=== PATIENT | male | born 1965 | race African-American/Black ===

== ENCOUNTER 2016-10-19 18:21 | Emergency (ER) | payer OTHER ==
[2016-10-19 18:30] VITALS: BMI 23.6
--- NOTE | 2016-10-19 18:30 | PDOC ---
[id number] Source: Patient Exam Limitations: No Limitations - History of Present Illness Initial Comments: 51 yo M no PMH presents with R ankle pain and deformity after landing incorrectly on his foot while doing a martial arts move. He denies any numbness , weakness. No other injuries. There is an obvious deformity to the ankle. Patient c/o moderate localized pain. <Eunice Stewart - Last Filed: 10/26/16 08:32> - General Chief Complaint: Pain, Acute Stated Complaint: RIGHT ANKLE PAIN Time Seen by Provider: 10/19/16 18:30 Past History <Gilberto Ramirez - Last Filed: 10/19/16 18:41> - Past Medical History Other medical history: HERNIATED DISC - Psycho/Social/Smoking Cessation Hx Anxiety: No Suicidal Ideation: No Smoking History: Never smoked Hx Alcohol Use: Yes Drug/Substance Use Hx: No Substance Use Type: Alcohol <Eunice Stewart - Last Filed: 10/26/16 08:32> - Past Medical History Allergies/Adverse Reactions: Allergies Allergy/AdvReac Type Severity Reaction Status Date / Time No Known Allergies Allergy Verified 10/19/16 18:22 Home Medications: Ambulatory Orders Oxycodone HCl/Acetaminophen [Percocet 5-325 mg Tablet] 1 - 2 tab PO Q6H #50 tablet MDD 8 10/25/16 Review of Systems - Review of Systems Able to Perform ROS?: Yes <Gilberto Ramirez - Last Filed: 10/19/16 18:41> - Review of Systems Comments:: GENERAL/CONSTITUTIONAL: No fever or chills. No weakness. HEAD, EYES, EARS, NOSE AND THROAT: No change in vision. No ear pain or discharge. No sore throat. CARDIOVASCULAR: No chest pain or shortness of breath. RESPIRATORY: No cough, wheezing, or hemoptysis. GASTROINTESTINAL: No nausea, vomiting, diarrhea or constipation. GENITOURINARY: No dysuria, frequency, or change in urination. MUSCULOSKELETAL: +R ankle pain, swelling, and deformity. No neck or back pain. SKIN: No rash NEUROLOGIC: No headache, vertigo, loss of consciousness, or change in strength/ sensation. ENDOCRINE: No increased thirst. No abnormal weight change. HEMATOLOGIC/LYMPHATIC: No anemia, easy bleeding, or history of blood clots. ALLERGIC/IMMUNOLOGIC: No hives or skin allergy. <Eunice Stewart - Last Filed: 10/26/16 08:32> *Physical Exam - Vital Signs Last Vital Signs Temp Pulse Resp BP Pulse Ox 0/0 10/19/16 18:22 <KaityGilberto fabian - Last Filed: 10/19/16 18:41> - Vital Signs Last Vital Signs Temp Pulse Resp BP Pulse Ox 0/0 10/19/16 18:22 - Physical Exam Comments: GENERAL: Awake, alert, and fully oriented, in no acute distress HEAD: No signs of trauma EYES: PERRLA, EOMI, sclera anicteric, conjunctiva clear ENT: Auricles normal inspection, hearing grossly normal, nares patent, oropharynx clear without exudates. Moist mucosa NECK: Normal ROM, supple, no lymphadenopathy, JVD, or masses LUNGS: Breath sounds equal, clear to auscultation bilaterally. No wheezes, and no crackles HEART: Regular rate and rhythm, normal S1 and S2, no murmurs, rubs or gallops ABDOMEN: Soft, nontender, normoactive bowel sounds. No guarding, no rebound. No masses EXTREMITIES: +Obvious deformity to the R ankle, foot rotated laterally. Distal N /V intact. Cap refill <2s. Remainder of extremities with normal range of motion , no edema. No clubbing or cyanosis. No cords, erythema, or tenderness NEUROLOGICAL: Cranial nerves II through XII grossly intact. Normal speech, normal gait SKIN: Warm, Dry, normal turgor, no rashes or lesions noted. <Eunice Stewart - Last Filed: 10/26/16 08:32> ED Treatment Course - LABORATORY CBC & Chemistry Diagram: 10/19/16 19:02 10/19/16 19:02 - RADIOLOGY Radiology Studies Ordered: Category Date Time Status ANKLE-RIGHT [RAD] Stat Radiology 10/19/16 18:28 Ordered <Eunice Stewart - Last Filed: 10/26/16 08:32> Medical Decision Making - Medical Decision Making 10/19/16 19:[address] Melvin. Dr. Vaughn has reduced and placed in splint, awaiting f /u XR. I have written rx for pain medication. Will f/u as outpatient with ortho. <Eunice Stewart - Last Filed: 10/26/16 08:32> *DC/Admit/Observation/Transfer - Attestations Scribe Attestion: 10/19/16 18:32 Documentation prepared by Gilberto Ramirez, acting as medical office technologist for Eunice Stewart MD. <Gilberto Ramirez - Last Filed: 10/19/16 18:41> - Discharge Dispostion Admit: No <Eunice Stewart - Last Filed: 10/26/16 08:32> Diagnosis at time of Disposition: Closed fracture dislocation of ankle - Discharge Dispostion Disposition: HOME Condition at time of disposition: Stable - Referrals Referrals: John Vaughn MD [Staff Physician] - - Patient Instructions Printed Discharge Instructions: DI for Ankle Fracture, DI for Ankle Dislocation Additional Instructions: Follow-up with the orthopedist as per his instructions. For pain you can take ibuprofen 600 mg 3 times a day with food don't take on an empty stomach If he needs something stronger for pain take Percocet one or 2 tablets as often as every 4-6 hours. Use your crutches for ambulation no weight bearing. Return to the emergency department immediately with ANY new, persistent or worsening symptoms. Continue any medications as previously prescribed by your physician. You should follow up with your primary doctor as soon as possible regarding today's emergency department visit. . Please make sure your doctor reviews the results of your emergency evaluation. Thank you for coming to the Emergency Department today for your care. It was a pleasure to see you today. Please note that your evaluation is INCOMPLETE until you follow-up with your doctor.
[2016-10-19] MEDS ORDERED: morphine CARPU-JECT 4 MG/1 ML DISP.SYRIN IVPUSH ONE (18:55)
[2016-10-19] MEDS ORDERED: SODIUM CHLORIDE 1,000 ML IV STA (18:55)
[2016-10-19] MEDS ORDERED: morphine CARPU-JECT 10 MG/1 ML DISP.SYRIN ONE (19:04)
[2016-10-19 19:07] VITALS: BP 147/98
[2016-10-19 19:08] VITALS: PULSE 94; TEMP 98.3
[2016-10-19 19:10] LABS: MCH 27.1 pg (25.7-33.7); MCHC 31.8 g/dl (32.0-35.9); MEAN CELL VOLUME 85.1 fl (80-96); MEAN PLT VOLUME 7.9 fl (7.5-11.1); PLATELET COUNT 349 K/MM3 (134-434); RDW 13.1 % (11.9-15.9); WHITE BLOOD COUNT 8.3 K/mm3 (4.0-10.0)
[2016-10-19 19:26] LABS: ALBUMIN 4.2 g/dl (3.5-5.0); ALK PHOS 59 U/L (32-92); ANION GAP 9 (8-16); BILIRUBIN,TOTAL 0.2 mg/dl (0.2-1.0); CALCIUM 9.1 mg/dl (8.4-10.2); CO2 25 mmol/L (22-28); GLUCOSE,RANDOM 128 mg/dl (74-106); SGOT/AST 26 U/L (10-42); SGPT/ALT 31 U/L (10-40); TOT PROT 7.2 g/dl (6.4-8.3)
[2016-10-19 19:30] LABS: INR 1.03 (0.82-1.09); PROTHROMBIN TIME (PATIENT) 11.5 SEC (10.2-13.0)
--- NOTE | 2016-10-19 20:20 | PDOC ---
*Physical Exam - Vital Signs Last Vital Signs Temp Pulse Resp BP Pulse Ox 98.3 F 94 H 18 147/98 100 10/19/16 18:22 10/19/16 18:22 10/19/16 18:22 10/19/16 19:07 10/19/16 18:22 ED Treatment Course - LABORATORY CBC & Chemistry Diagram: 10/19/16 19:02 10/19/16 19:02 - ADDITIONAL ORDERS Additional order review: Laboratory Results 10/19/16 10/19/16 19:02 19:02 INR 1.03 Sodium 138 Potassium 3.8 Chloride 104 Carbon Dioxide 25 Anion Gap 9 BUN 12 Creatinine 1.0 Creat Clearance w eGFR > 60 Random Glucose 128 H Calcium 9.1 Total Bilirubin 0.2 AST 26 ALT 31 Alkaline Phosphatase 59 Total Protein 7.2 Albumin 4.2 10/19/16 19:02 RBC 5.13 MCV 85.1 MCHC 31.8 L RDW 13.1 MPV 7.9 Neutrophils % Y Lymphocytes % Y - Medications Given in the ED: ED Medications Discontinued Medications Generic Name Dose Route Start Last Admin Trade Name Freq PRN Reason Stop Dose Admin Sodium Chloride 1,000 mls @ 1,000 mls/hr 10/19/16 18:55 10/19/16 19:07 Normal Saline - IV 10/19/16 19:54 1,000 mls/hr ASDIR STA Administration Morphine Sulfate 4 mg 10/19/16 18:55 10/19/16 19:07 Morphine Injection - IVPUSH 10/19/16 18:56 4 mg ONCE ONE Administration Progress Note - Progress Note Progress Note: Postreduction x-ray alignment is marked improved with some displacement of the fibula as well as disruption of the mortise. Assessment and plan: Care of this patient was transferred to [facility] by Dr. Stewart. Patient was seen and evaluated and casted by orthopedist Patient has follow-up by the orthopedist. I reviewed postreduction x-ray and discharge patient. *DC/Admit/Observation/Transfer Diagnosis at time of Disposition: Closed fracture dislocation of ankle - Discharge Dispostion Disposition: HOME Condition at time of disposition: Stable - Prescriptions Prescriptions: Ibuprofen [Motrin -] 600 mg PO TID PRN #21 tablet PRN Reason: Pain Oxycodone HCl/Acetaminophen [Percocet 5-325 mg Tablet] 1 tab PO Q6H PRN #12 tablet MDD 4 tabs PRN Reason: Severe Pain - Referrals Referrals: John Vaughn MD [Staff Physician] - - Patient Instructions Printed Discharge Instructions: DI for Ankle Fracture, DI for Ankle Dislocation Additional Instructions: Follow-up with the orthopedist as per his instructions. For pain you can take ibuprofen 600 mg 3 times a day with food don't take on an empty stomach If he needs something stronger for pain take Percocet one or 2 tablets as often as every 4-6 hours. Use your crutches for ambulation no weight bearing. Return to the emergency department immediately with ANY new, persistent or worsening symptoms. Continue any medications as previously prescribed by your physician. You should follow up with your primary doctor as soon as possible regarding today's emergency department visit. . Please make sure your doctor reviews the results of your emergency evaluation. Thank you for coming to the Emergency Department today for your care. It was a pleasure to see you today. Please note that your evaluation is INCOMPLETE until you follow-up with your doctor. - Post Discharge Activity
--- NOTE | 2016-10-19 23:32 | CONS ---
DATE OF CONSULTATION: 10/19/2016 ORTHOPEDIC EMERGENCY ROOM CONSULTATION HISTORY OF PRESENT ILLNESS: Patient is a 51-year-old male status post fall with trauma today, presented to the [facility] emergency room with an obvious angulated deformity of the right ankle. Before I evaluated the patient, patient was given an x-ray which showed a bimalleolar fracture dislocation of the right ankle. Patient denies any cigarette use, diabetes, or any other significant past medical history. PHYSICAL EXAMINATION: Patient has an obvious external rotation deformity with distal tibia tensing anteriorly. Pulses were intact for capillary refill. is soft, nontender. X-rays showed a bimalleolar fracture dislocation of the ankle. IMPRESSION: Right bimalleolar fracture dislocation of the ankle. A closed reduction was performed which was basically stable. Patient was placed in a U splint post reduction, with brisk capillary refill and 2+ pulses. Post reduction x-rays shows the fracture is reduced, but still some displacement of the mortise. Patient was sent home with ice and elevation and U splint and told to follow up in the office and we booked the patient for open reduction internal fixation next week once the swelling goes down. MARCELLA MCMAHON M.D. [id number]
== END 2016-10-19 20:25 | disposition home or self-care (01) ==
LOC: FER 18:21
PROC: 0SSFXZZ Reposition Right Ankle Joint, External Approach (ICD-10-PCS; principal; 2016-10-19)
PROC: 3E033NZ Introduction of Analgesics, Hypnotics, Sedatives into Peripheral Vein, Percutaneous Approach (ICD-10-PCS; 2016-10-19)
PROC: 3E0337Z Introduction of Electrolytic and Water Balance Substance into Peripheral Vein, Percutaneous Approach (ICD-10-PCS; 2016-10-19)
DX: S92.101A Unspecified fracture of right talus, initial encounter for closed fracture (principal); W18.39XA Other fall on same level, initial encounter; Y93.75 Activity, martial arts; Y92.9 Unspecified place or not applicable
CPT/HCPCS: 36415; 73610-TC-RT; 80053; 85025; 85610; 86850; 86900; 86901; 99284-25

== ENCOUNTER 2016-10-25 09:24 | Day surgery (SDC) | payer OTHER ==
[2016-10-21 11:32] VITALS: BMI 38.4
[2016-10-25] MEDS ORDERED: MIDAZOLAM HCL 2 MG/2 ML SINGLE DOSE VIAL ONE (11:40)
[2016-10-25] MEDS ORDERED: DEXAMETHASONE SOD PHOSPHATE/PF 10 MG/ML SDV ONE (11:40)
--- NOTE | 2016-10-25 12:14 | HP ---
Satellite [facility] - Chief Complaint Chief Complaint: right ankle fx - Past Medical History Allergies/Adverse Reactions: Allergies Allergy/AdvReac Type Severity Reaction Status Date / Time No Known Allergies Allergy Verified 10/19/16 18:22 - Current Medications Current Medications: Home Medications Medication Instructions Recorded Oxycodone HCl/Acetaminophen 1 - 2 tab PO Q6H #50 tablet MDD 8 10/25/16 [Percocet 5-325 mg Tablet] Satellite Physical Exam - Physical Examination Vital Signs: Vital Signs Period Temp Pulse Resp BP Sys/Stuart Pulse Ox Last 24 Hr 98.2 F 98 16 150/92 98 General Appearance: Well Nourished, Well Developed, Alert & Oriented x3 ENT: Clear Lung: Normal air movement Heart: Regular rate & rhythm Extremities: Other (right ankle- splint intact, + swelling, + ttp, decr rom, nvi ) Neurological: Intact, Alert, Oriented Satellite Impression/Plan - Impression/Plan Impression: right ankle fx-dislocation Operative Procedure: right ankle orif Date to be Performed: 10/25/16
[2016-10-25] MEDS ORDERED: ceFAZolin SODIUM 1 GM VIAL ONE (12:50)
[2016-10-25] MEDS ORDERED: PROPOFOL 20 ML ONE (13:46)
--- NOTE | 2016-10-25 14:21 | OP ---
Operative Note - Note: Operative Date: 10/25/16 (luther) Pre-Operative Diagnosis: right ankle fx Operation: right ankle orif, syndesmosis repair Post-Operative Diagnosis: Same as Pre-op Surgeon: John Vaughn Warehouse Trainer: Gilberto Mireles Anesthesiologist/SUPERVISOR TELEPHONE INFORMATION: Lizzie Olivera Anesthesia: Local Estimated Blood Loss (mls): 25 (tourniquet) Operative Report Dictated: Yes
[2016-10-25] MEDS ORDERED: LACTATED RINGERS SOLUTION 1,000 ML IV SCH (14:45)
[2016-10-25 15:19] VITALS: PULSE 85
[2016-10-25] MEDS ORDERED: CEFAZOLIN 2 GM/D5W 50 ML IVPB ONE (15:30)
[2016-10-25] MEDS ORDERED: ONDANSETRON 4 MG/2 ML VIAL IVPUSH PRN (15:30)
[2016-10-25] MEDS ORDERED: oxyCODONE HCL 5 MG TABLET PO PRN ×2 (15:30→15:31)
[2016-10-25 16:12] VITALS: BP 139/82; TEMP 98.3
--- NOTE | 2016-10-25 20:53 | OP ---
DATE OF OPERATION: 10/25/2016 PREOPERATIVE DIAGNOSIS: Right bimalleolar fracture dislocation and syndesmosis rupture. POSTOPERATIVE DIAGNOSIS: Right bimalleolar fracture dislocation and syndesmosis rupture. OPERATIVE PROCEDURE: Open reduction and internal fixation of the right bimalleolar fracture and syndesmosis repair. SURGICAL ATTENDING: John Vaughn MD INDUSTRIAL SERVICER: SANDIP Green ANESTHESIA: Regional and general. CLOSURE: A lateral plate and screws from [employer], 2 cannulated screws medially and 2 syndesmosis TightRopes for syndesmosis, 0 Vicryl for fascia, 2-0 for subcutaneous, and hammad for skin. ESTIMATED BLOOD LOSS: Negligible. TOURNIQUET TIME: Approximately 1 hour 10 minutes. DESCRIPTION OF OPERATIVE PROCEDURE: Patient taken to the operating room on October 25, 2016. Regional and general anesthesia was administered by the anesthesiologist. IV Kefzol administered prophylactic prior to case. A well-padded pneumatic tourniquet was placed on the right proximal calf away from the fibular head. The right lower extremity was prepped and draped in the usual sterile fashion. The leg was exsanguinated with an Esmarch bandage. Tourniquet was inflated to 250 mmHg. An 8 cm longitudinal incision centered over the fibular fracture, which was a high fibular fracture, was incised. Hemostasis achieved with Bovie cautery. Sharp dissection was carried through the fascia and blunt dissection was carried down to the fracture. Periosteal elevated was used to clear the fracture and expose the ends. Curette and irrigation removed the hematoma from around the fracture. An anatomical reduction was obtained using pointed reduction clamp. A flat DCP plate was applied to the posterolateral aspect of the fibula and clamped into place. Multiple proximal and distal holes were drilled, depth gauged, and screwed with the appropriate type of screws. First they were nonlocking to cinch the plate to the bone and then the others were locking. The middle screw lagged the 2 fractures, 1 to each other, through the plate itself as well, achieving excellent compression and anatomical reduction. X-ray revealed excellent position and reduction of the fracture and the hardware was in excellent position. Next our attention was directed medially. A 5 cm longitudinal incision over the medial malleolus was incised. Hemostasis achieved with Bovie cautery. Sharp dissection was carried down to the level of the fracture. The periosteum and clot forming around the fracture was debrided. A drill hole was made proximal to the fracture to allow placement of a pointed reduction clamp. Pointed reduction clamp was used to gain an anatomic reduction of the medial malleolus. Two threaded pins were drilled from the tip of the malleolus past the fracture into the distal tibia, proper placement confirmed in the AP, lateral and mortise views. They were then depth gauged and screwed with the appropriate size partially-threaded cannulated 4-0 screws, achieving excellent compression of the fracture. Fluoroscopy revealed anatomical reduction of the fibula and the medial malleolus. External rotation, however, revealed gapping of the syndesmosis. With the ankle held in neutral and internal rotation, 2 guidewires from the [employer] syndesmosis TightRope set were drilled through all 4 cortices parallel to the ankle joint. They were then over-reamed with a drill and then knotless syndesmosis TightRopes were deployed, cinching them down on the lateral fibula, achieving excellent fixation of the syndesmosis. The sutures were cut short. Fluoroscopy revealed excellent position of the syndesmosis TightRope. External rotation revealed good stability of the syndesmosis post repair. Both incisions were irrigated with copious amounts of irrigation. The fascia was closed with 0 Vicryl, 2-0 for subcutaneous, and hammad for the skin. A sterile pressure dressing followed by a U splint was applied. Tourniquet was deflated. Total tourniquet time was approximately 70 minutes. No complications. Radha PAREKH/[id number]
== END 2016-10-25 16:00 | disposition home or self-care (01) ==
LOC: FASU 09:24
PROVIDERS: ATTEND Orthopaedic Surgery
PROC: 0SSF0ZZ Reposition Right Ankle Joint, Open Approach (ICD-10-PCS; 2016-10-25)
PROC: 0QSG04Z Reposition Right Tibia with Internal Fixation Device, Open Approach (ICD-10-PCS; principal; 2016-10-25 13:03)
DX: S82.841A Displaced bimalleolar fracture of right lower leg, initial encounter for closed fracture (principal); S93.431A Sprain of tibiofibular ligament of right ankle, initial encounter; X58.XXXA Exposure to other specified factors, initial encounter; Y93.9 Activity, unspecified; Y92.9 Unspecified place or not applicable
CPT/HCPCS: 73610-TC-RT; 76001-TC; 94760

== ENCOUNTER 2016-10-30 23:39 | Emergency (ER) | payer OTHER ==
[2016-10-30 23:45] VITALS: BP 155/103; PULSE 104; TEMP 99; BMI 38.4
--- NOTE | 2016-10-31 00:07 | PDOC ---
History of Present Illness - General Stated Complaint: SWELLING TO RIGHT FOOT POST SURGERY History Source: Patient - History of Present Illness Initial Comments: 10/31/16 03:31 s/p orif r ankle days ago with immobilization of R ankle presents with tingling and increased swelling to r foot Timing/Duration: 1 week Severity: moderate Modifying Factors: improves with: immobilization Associated Symptoms: reports: nausea/vomiting. denies: chest pain, cough, fever /chills, headaches, shortness of breath Past History - Past Medical History Allergies/Adverse Reactions: Allergies Allergy/AdvReac Type Severity Reaction Status Date / Time No Known Allergies Allergy Verified 10/30/16 23:40 Home Medications: Ambulatory Orders Oxycodone HCl/Acetaminophen [Percocet 5-325 mg Tablet] 1 - 2 tab PO Q6H #50 tablet MDD 8 10/25/16 Anemia: No Asthma: No Cancer: No Cardiac Disorders: No CVA: No COPD: No CHF: No Dementia: No Diabetes: No GI Disorders: No Disorders: No HTN: No Hypercholesterolemia: No Liver Disease: No Seizures: No Thyroid Disease: No - Surgical History Abdominal Surgery: Yes (Umbilical Hernia Repair 2016) Appendectomy: No Cardiac Surgery: No Cholecystectomy: No Lung Surgery: No Neurologic Surgery: No Orthopedic Surgery: No - Psycho/Social/Smoking Cessation Hx Anxiety: No Suicidal Ideation: No Smoking History: Never smoked Have you smoked in the past 12 months: No Information on smoking cessation initiated: No Hx Alcohol Use: No Drug/Substance Use Hx: No Substance Use Type: None Hx Substance Use Treatment: No Review of Systems - Review of Systems All Other Systems: Reviewed and Negative *Physical Exam - Vital Signs Last Vital Signs Temp Pulse Resp BP Pulse Ox 99 F 104 H 18 155/103 98 10/30/16 23:40 10/30/16 23:40 10/30/16 23:40 10/30/16 23:40 10/30/16 23:40 - Physical Exam General Appearance: Yes: Nourished Respiratory/Chest: positive: Lungs Clear Cardiovascular: positive: Regular Rhythm Lymphatic: negative: Adenopathy Extremity: positive: Normal Capillary Refill, Swelling. negative: Delayed Capillary Refill Neurologic: negative: Sensory Deficit Medical Decision Making - Medical Decision Making 10/31/16 03:32 gradually increased swelling RLE, now causing tingling of R foot symptoms improved after loosening of ana wrap around splint encouraged elevation has ortho fu in AM *DC/Admit/Observation/Transfer Diagnosis at time of Disposition: POST OP COMPLICATION Post-operative complication Qualifiers: Surgical complication system/body Area: musculoskeletal system Surgical complication type: unspecified Procedure type: musculoskeletal Qualified Code(s) : M96.89 - Other intraoperative and postprocedural complications and disorders of the musculoskeletal system - Discharge Dispostion Disposition: HOME Condition at time of disposition: Stable - Referrals Referrals: John Vaughn MD [Primary Care Provider] - - Patient Instructions Additional Instructions: Follow-up with your doctor in the morning
== END 2016-10-30 23:52 | disposition home or self-care (01) ==
LOC: FER 23:39
DX: M96.89 Other intraoperative and postprocedural complications and disorders of the musculoskeletal system (principal); X58.XXXA Exposure to other specified factors, initial encounter; Y93.9 Activity, unspecified
CPT/HCPCS: 99281-25